=== PATIENT | female | born 1980 | race African-American/Black ===

== ENCOUNTER 2025-02-14 08:23 | Outpatient (CLI) | payer OTHER | END 2025-02-14 08:24 | disposition home or self-care (01) | LOC: CSHMAMMO 08:23 | PROVIDERS: ATTEND Internal Medicine | DX: Z08 Encounter for follow-up examination after completed treatment for malignant neoplasm (principal); Z85.3 Personal history of malignant neoplasm of breast; R92.30 Dense breasts, unspecified; N60.81 Other benign mammary dysplasias of right breast; Z15.01 Genetic susceptibility to malignant neoplasm of breast | CPT/HCPCS: 77066; G0279 ==

== ENCOUNTER 2025-02-14 09:39 | Outpatient (CLI) | payer OTHER | END 2025-02-14 09:40 | disposition home or self-care (01) | LOC: CSHMRI 09:39 | PROVIDERS: ATTEND Internal Medicine Hematology & Oncology | DX: N60.81 Other benign mammary dysplasias of right breast (principal); R92.30 Dense breasts, unspecified; Z15.01 Genetic susceptibility to malignant neoplasm of breast | CPT/HCPCS: C8908 ==